=== PATIENT | male | born 1935 | race Caucasian/White ===

== ENCOUNTER 2017-05-11 07:15 | Outpatient (CLI) | payer MEDICARE, OTHER ==
[2017-05-11 15:01] LABS: ALBUMIN/GLOBULIN RATIO 1.5 (1.0-2.2); BILIRUBIN,TOTAL 0.8 mg/dL (0.2-1.0); BUN - BLOOD UREA NITROGEN 26 mg/dL (6-20); CALCIUM 8.8 mg/dL (8.5-10.3); CARBON DIOXIDE - CO2 26 mmol/L (21-32); CHLORIDE 106 mmol/L (101-111); CHOL/HDL RATIO 2.6 (<5.0); CHOLESTEROL 126 mg/dL; CREATININE 1.8 mg/dL (0.6-1.2); GFR - MDRD 37 (>89); GLUCOSE 81 mg/dL (70-100); HDL CHOLESTEROL 49 mg/dL; LDL/HDL RATIO 1.4 (<3.6); POTASSIUM 5.1 mmol/L (3.5-5.0); SODIUM 137 mmol/L (135-145); TOTAL PROTEIN 6.4 g/dL (6.7-8.2); TRIGLYCERIDES 43 mg/dL; VLDL CHOLESTEROL 9 mg/dL
== END 2017-05-11 07:16 | disposition home or self-care (01) ==
LOC: LAB.WCP 07:15
PROVIDERS: ATTEND Family Medicine
DX: I42.9 Cardiomyopathy, unspecified (principal); I25.10 Atherosclerotic heart disease of native coronary artery without angina pectoris; I48.92 Unspecified atrial flutter; R94.6 Abnormal results of thyroid function studies
CPT/HCPCS: 36415; 80053; 80061; 84439; 84443

== ENCOUNTER 2018-08-01 07:42 | Outpatient (CLI) | payer MEDICARE, OTHER ==
[2018-08-01 19:50] LABS: BASOPHILS # (AUTO) 0.1 10^3/uL (0.0-0.1); BASOPHILS % (AUTO) 0.8 %; EOSINOPHILS # (AUTO) 0.3 10^3/uL (0.0-0.7); EOSINOPHILS % (AUTO) 3.4 %; HGB - HEMOGLOBIN 13.8 g/dL (14.0-18.0); LYMPHOCYTES # (AUTO) 1.9 10^3/uL (1.5-3.5); LYMPHOCYTES % (AUTO) 26.3 %; MEAN CORPUSCULAR HEMOGLOBIN 30.9 pg (27.0-31.0); MEAN CORPUSCULAR HGB CONC 32.8 g/dL (32.0-36.0); MEAN CORPUSCULAR VOLUME 94.2 fL (80.0-94.0); MEAN PLATELET VOLUME 8.3 fL (7.4-11.4); MONOCYTES # (AUTO) 0.7 10^3/uL (0.0-1.0); MONOCYTES % (AUTO) 9.7 %; NEUTROPHILS # (AUTO) 4.4 10^3/uL (1.5-6.6); NEUTROPHILS % (AUTO) 59.8 %; PLT - PLATELET COUNT 202 10^3/uL (130-450); RED BLOOD COUNT 4.46 10^6/uL (4.70-6.10); RED CELL DISTRIBUTION WIDTH 14.8 % (12.0-15.0); WHITE BLOOD COUNT 7.4 x10^3/uL (4.8-10.8)
[2018-08-01 20:14] LABS: THYROID STIMULATING HORMONE 4.04 uIU/mL (0.34-5.60)
[2018-08-01 20:18] LABS: FREE T4 (FREE THYROXINE) 0.97 ng/dL (0.58-1.64)
[2018-08-01 20:20] LABS: ALBUMIN 3.8 g/dL (3.2-5.5); ALBUMIN/GLOBULIN RATIO 1.2 (1.0-2.2); ALKALINE PHOSPHATASE 60 IU/L (42-121); ALT ALANINE AMINOTRANSFERASE 19 IU/L (10-60); AST ASPARTATE AMINOTRANSFERASE 22 IU/L (10-42); BILIRUBIN,TOTAL 1.3 mg/dL (0.2-1.0); BUN - BLOOD UREA NITROGEN 34 mg/dL (6-20); CARBON DIOXIDE - CO2 24 mmol/L (21-32); CHLORIDE 107 mmol/L (101-111); CHOL/HDL RATIO 2.6 (<5.0); CHOLESTEROL 129 mg/dL; CREATININE 1.4 mg/dL (0.6-1.2); GFR - MDRD 49 (>89); GLUCOSE 87 mg/dL (70-100); HDL CHOLESTEROL 49 mg/dL; LDL CHOLESTEROL,CALCULATED 71 mg/dL; LDL/HDL RATIO 1.4 (<3.6); SODIUM 138 mmol/L (135-145); TOTAL PROTEIN 6.9 g/dL (6.7-8.2); VLDL CHOLESTEROL 9 mg/dL
== END 2018-08-01 07:43 | disposition home or self-care (01) ==
LOC: LAB.WCP 07:42
PROVIDERS: ATTEND Family Medicine
DX: I42.9 Cardiomyopathy, unspecified (principal); I25.10 Atherosclerotic heart disease of native coronary artery without angina pectoris; R94.6 Abnormal results of thyroid function studies; I48.92 Unspecified atrial flutter
CPT/HCPCS: 36415; 80053; 80061; 83721; 84439; 84443; 85025

== ENCOUNTER 2018-08-05 07:55 | Outpatient (CLI) | payer MEDICARE, OTHER | END 2018-08-05 07:56 | disposition home or self-care (01) | LOC: DI 07:55 | PROVIDERS: ATTEND Family Medicine | DX: I42.9 Cardiomyopathy, unspecified (principal); I48.92 Unspecified atrial flutter; I34.0 Nonrheumatic mitral (valve) insufficiency; J98.4 Other disorders of lung | CPT/HCPCS: 93306; 94010; 94729 ==

== ENCOUNTER 2018-08-13 17:24 | Emergency (ER) | payer MEDICARE, OTHER ==
[2018-08-13] MEDS ORDERED: METOPROLOL 5 MG/5 ML VIAL IVP STA ×2 (18:03→19:18)
--- NOTE | 2018-08-13 18:04 | ED Physician Documentation ---
History of Present Illness - Stated complaint Stated Complaint: IRREGULAR HR - Chief complaint Chief Complaint: Cardiac - History obtained from History obtained from: Patient, Family - History of Present Illness Timing: Today Pain level max: 0 Pain level now: 0 Improved by: nothing Worsened by: nothing - Additonal information Additional information: Patient is an 82-year-old male with a history of atrial fibrillation who presents to the emergency department with rapid heartbeat today. No chest pain. No shortness of breath. States that last time he was cardioverted. Review of Systems Ten Systems: 10 systems reviewed and negative Constitutional: denies: Fever, Chills Respiratory: denies: Cough GI: denies: Abdominal Pain, Vomiting, Diarrhea Skin: denies: Rash Musculoskeletal: denies: Neck pain, Back pain PD PAST MEDICAL HISTORY - Past Medical History Past Medical History: Yes Cardiovascular: Congestive heart failure, Hypertension, Atrial flutter, Atrial fibrillation Respiratory: Other Endocrine/Autoimmune: None GI: None : Incontinence, Nocturia HEENT: Chronic vision loss Psych: None Musculoskeletal: None Derm: None - Past Surgical History Past Surgical History: Yes Cardiovascular: CABG, Coronary stent HEENT: Cataracts - Present Medications Home Medications: Ambulatory Orders Medication Instructions Recorded Confirmed Aspirin 81 mg PO DAILY 08/09/13 07/23/16 Nitroglycerin 0.4 mg SL Q5M PRN 01/05/16 07/23/16 Amiodarone [Pacerone] 200 mg DAILY 07/23/16 07/23/16 Atorvastatin [Lipitor] 40 mg DAILY 07/23/16 07/23/16 Lisinopril 5 mg DAILY 07/23/16 07/23/16 Spironolactone 25 mg DAILY 07/23/16 07/23/16 Warfarin [Coumadin] 2.5 mg PO 1400 07/23/16 07/23/16 - Allergies Allergies/Adverse Reactions: Allergies Allergy/AdvReac Type Severity Reaction Status Date / Time carvedilol AdvReac Unknown Verified 07/23/16 15:03 - Social History Does the pt smoke?: No Smoking Status: Never smoker Does the pt drink ETOH?: Yes Does the pt have substance abuse?: No - Immunizations Immunizations are current?: Yes PD ED PE NORMAL - Vitals Vital signs reviewed: Yes - General General: Alert and oriented X 3, No acute distress - HEENT HEENT: Moist mucous membranes, Pharynx benign - Neck Neck: Supple, no meningeal sign - Cardiac Cardiac: Strong equal pulses, Other (irregular) - Respiratory Respiratory: No respiratory distress, Clear bilaterally - Abdomen Abdomen: Soft, Non tender, Non distended - Derm Derm: Warm and dry - Extremities Extremities: No edema - Neuro Neuro: Alert and oriented X 3 - Psych Psych: Normal mood, Normal affect Results - Vitals Vitals: Vital Signs - 24 hr 08/13/18 08/13/18 08/13/18 17:29 19:22 19:31 Temperature 36.2 C L Heart Rate 136 H 125 H 120 H Respiratory 18 18 16 Rate Blood Pressure 134/90 H 118/95 H 125/86 H O2 Saturation 98 98 97 08/13/18 08/13/18 08/13/18 19:36 19:41 19:51 Temperature Heart Rate 120 H 119 H 88 Respiratory 17 20 18 Rate Blood Pressure 120/85 H 118/94 H 114/82 H O2 Saturation 99 97 99 08/13/18 08/13/18 08/13/18 20:00 20:12 20:20 Temperature Heart Rate 107 H 56 L 56 L Respiratory 17 18 18 Rate Blood Pressure 127/72 109/69 O2 Saturation 98 98 08/13/18 20:37 Temperature Heart Rate 55 L Respiratory 16 Rate Blood Pressure 107/69 O2 Saturation 96 Oxygen O2 Source Room air - EKG (time done) 2011 Rate: Rate (enter#) (54) Rhythm: NSR [place]: Normal Intervals: Normal [place] QRS: Normal Ischemia: Normal ST segments Other comments: Other comments (PAC) 1732 Rate: Rate (enter#) (133) Rhythm: Atrial fibrillation [place]: Normal QRS: Normal Ischemia: Other (rate related) - Labs Labs: Laboratory Tests 08/13/18 08/13/18 08/13/18 17:42 17:42 17:42 WBC 6.9 RBC 4.51 L Hgb 14.0 Hct 41.6 L MCV 92.4 MCH 31.0 MCHC 33.6 RDW 14.7 Plt Count 172 MPV 8.3 Neut # (Auto) 4.4 Lymph # (Auto) 1.4 L [place] # (Auto) 0.8 Eos # (Auto) 0.2 Baso # (Auto) 0.0 Absolute Nucleated RBC 0.00 Nucleated RBC % 0.0 PT 29.7 H INR 2.7 H Sodium 136 Potassium 4.0 Chloride 108 Carbon Dioxide 22 Anion Gap 6.0 BUN 34 H Creatinine 1.3 H Estimated GFR (MDRD) 53 L Glucose 127 H Calcium 8.4 L Phosphorus 2.5 Magnesium 2.3 Total Bilirubin 0.6 AST 24 ALT 22 Alkaline Phosphatase 74 Total Protein 6.7 Albumin 3.8 Globulin 2.9 Albumin/Globulin Ratio 1.3 Lipase 53 H Procedures - Cardioversion 1 Time of attempt: 20:00 Indication: Tachyarrhythmia Risks, benefits, alternatives explained to: Pt Prep: IV, O2, desk monitor, Pulse ox (EtCO2) Meds: Fentanyl, Propofol CS via: Pads, Anterolateral Sync: 150j, 200j, 360j Post cardioversion rhythm: NSR Complications: Other (none) Performed by: ED MD MEDICAL DECISION MAKING - ED course Complexity details: reviewed results, re-evaluated patient, considered differential, d/w patient ED course: 82-year-old male with a history of atrial fibrillation presents with atrial fibrillation with rapid ventricular response. He is maintained on amiodarone, no change with metoprolol. He is therapeutic and his INR, therefore he elected to be cardioverted. He was converted successfully to normal sinus rhythm and is now asymptomatic. I will have him follow-up with his doctor for further care. Patient counseled regarding signs and symptoms for which I believe and urgent re-evaluation would be necessary. Patient with good understanding of and agreement to plan and is comfortable going home at this time This document was made in part using voice recognition software. While efforts are made to proofread this document, sound alike and grammatical errors may occur. Departure - Departure Disposition: 01 Home, Self Care Clinical Impression: Atrial fibrillation Qualifiers: Atrial fibrillation type: paroxysmal Qualified Code(s): I48.0 - Paroxysmal atrial fibrillation Condition: Good Instructions: ED Afib Follow-Up: Tirso Mariano MD [Primary Care Provider] - Within 1 week Comments: Return if you worsen. You were cardioverted tonight. Discharge Date/Time: 08/13/18 20:43
[2018-08-13 18:19] LABS: BASOPHILS % (AUTO) 0.6 %; EOSINOPHILS # (AUTO) 0.2 10^3/uL (0.0-0.7); EOSINOPHILS % (AUTO) 3.6 %; LYMPHOCYTES # (AUTO) 1.4 10^3/uL (1.5-3.5); LYMPHOCYTES % (AUTO) 20.7 %; MEAN CORPUSCULAR HGB CONC 33.6 g/dL (32.0-36.0); MEAN CORPUSCULAR VOLUME 92.4 fL (80.0-94.0); MEAN PLATELET VOLUME 8.3 fL (7.4-11.4); MONOCYTES # (AUTO) 0.8 10^3/uL (0.0-1.0); MONOCYTES % (AUTO) 11.2 %; NEUTROPHILS # (AUTO) 4.4 10^3/uL (1.5-6.6); NEUTROPHILS % (AUTO) 63.9 %; PLT - PLATELET COUNT 172 10^3/uL (130-450); RED BLOOD COUNT 4.51 10^6/uL (4.70-6.10); RED CELL DISTRIBUTION WIDTH 14.7 % (12.0-15.0); WHITE BLOOD COUNT 6.9 x10^3/uL (4.8-10.8)
[2018-08-13 18:25] LABS: ALBUMIN 3.8 g/dL (3.2-5.5); ALBUMIN/GLOBULIN RATIO 1.3 (1.0-2.2); BILIRUBIN,TOTAL 0.6 mg/dL (0.2-1.0); CALCIUM 8.4 mg/dL (8.5-10.3); CREATININE 1.3 mg/dL (0.6-1.2); MAGNESIUM 2.3 mg/dL (1.7-2.8); PHOSPHORUS 2.5 mg/dL (2.5-4.6); TOTAL PROTEIN 6.7 g/dL (6.7-8.2)
[2018-08-13 18:32] LABS: INR 2.7 (0.8-1.2); PT - PROTHROMBIN TIME 29.7 secs (9.9-12.6)
[2018-08-13] MEDS ORDERED: METOPROLOL 5 MG/5 ML VIAL IVP ONE (19:27)
[2018-08-13] MEDS ORDERED: PROPOFOL 200 MG/20 ML VIAL IVP STA (19:47)
[2018-08-13] MEDS ORDERED: fentaNYL 100 MCG/2 ML VIAL IVP STA (19:47)
[2018-08-13 20:43] VITALS: BP 107/69
== END 2018-08-13 20:43 | disposition home or self-care (01) ==
LOC: ED 17:24
DX: I48.0 Paroxysmal atrial fibrillation (principal); I11.0 Hypertensive heart disease with heart failure; I50.9 Heart failure, unspecified; Z79.01 Long term (current) use of anticoagulants; Z95.1 Presence of aortocoronary bypass graft; Z95.5 Presence of coronary angioplasty implant and graft
CPT/HCPCS: 36415; 80053; 83690; 83735; 84100; 85025; 85610; 92960; 93005; 94770; 96374; 99284

== ENCOUNTER 2018-10-12 13:12 | Emergency (ER) | payer MEDICARE, OTHER ==
[2018-10-12 13:35] LABS: BASOPHILS # (AUTO) 0.1 10^3/uL (0.0-0.1); BASOPHILS % (AUTO) 0.9 %; EOSINOPHILS # (AUTO) 0.2 10^3/uL (0.0-0.7); EOSINOPHILS % (AUTO) 3.4 %; HGB - HEMOGLOBIN 13.9 g/dL (14.0-18.0); LYMPHOCYTES # (AUTO) 1.4 10^3/uL (1.5-3.5); LYMPHOCYTES % (AUTO) 20.9 %; MEAN CORPUSCULAR HEMOGLOBIN 30.3 pg (27.0-31.0); MEAN CORPUSCULAR HGB CONC 33.2 g/dL (32.0-36.0); MEAN CORPUSCULAR VOLUME 91.4 fL (80.0-94.0); MEAN PLATELET VOLUME 7.8 fL (7.4-11.4); MONOCYTES # (AUTO) 0.8 10^3/uL (0.0-1.0); MONOCYTES % (AUTO) 11.6 %; NEUTROPHILS # (AUTO) 4.2 10^3/uL (1.5-6.6); NEUTROPHILS % (AUTO) 63.2 %; PLT - PLATELET COUNT 192 10^3/uL (130-450); RED BLOOD COUNT 4.58 10^6/uL (4.70-6.10); RED CELL DISTRIBUTION WIDTH 14.9 % (12.0-15.0); WHITE BLOOD COUNT 6.6 x10^3/uL (4.8-10.8)
[2018-10-12 13:43] LABS: ALBUMIN 3.7 g/dL (3.2-5.5); BILIRUBIN,TOTAL 0.8 mg/dL (0.2-1.0); CREATININE 1.5 mg/dL (0.6-1.2); TOTAL PROTEIN 7.3 g/dL (6.7-8.2)
[2018-10-12] MEDS ORDERED: PROPOFOL 200 MG/20 ML VIAL IVP STA (13:43)
[2018-10-12 14:03] LABS: INR 2.8 (0.8-1.2); PT - PROTHROMBIN TIME 30.5 secs (9.9-12.6)
--- NOTE | 2018-10-12 14:08 | ED Physician Documentation ---
History of Present Illness - Stated complaint Stated Complaint: RAPID HR - Chief complaint Chief Complaint: Cardiac - History obtained from History obtained from: Patient - History of Present Illness Timing: Today Pain level max: 0 Pain level now: 0 - Additonal information Additional information: 83-year-old male with a history of paroxysmal atrial fibrillation. States that he took his pulse today and it was in the 130s-150s. Has had to be cardioverted in the past. Is maintained on warfarin. No chest pain. No shortness of breath. Currently feeling better when he is sitting down. Nothing makes it worse Review of Systems Constitutional: denies: Fever, Chills Nose: denies: Rhinorrhea / runny nose, Congestion Throat: denies: Sore throat Cardiac: denies: Chest pain / pressure Respiratory: denies: Cough GI: denies: Nausea, Vomiting, Diarrhea Skin: denies: Rash Musculoskeletal: denies: Neck pain, Back pain Neurologic: denies: Headache PD PAST MEDICAL HISTORY - Past Medical History Past Medical History: Yes Cardiovascular: Congestive heart failure, Hypertension, Atrial flutter, Atrial fibrillation Respiratory: Other Endocrine/Autoimmune: None GI: None : Incontinence, Nocturia HEENT: Chronic vision loss Psych: None Musculoskeletal: None Derm: None Other Past Medical History: Cardiac Cardioversion - Past Surgical History Past Surgical History: Yes Cardiovascular: CABG, Coronary stent HEENT: Cataracts - Present Medications Home Medications: Ambulatory Orders Medication Instructions Recorded Confirmed Aspirin 81 mg PO DAILY 08/09/13 10/12/18 Nitroglycerin 0.4 mg SL Q5M PRN 01/05/16 10/12/18 Amiodarone [Pacerone] 200 mg DAILY 07/23/16 10/12/18 Atorvastatin [Lipitor] 40 mg DAILY 07/23/16 10/12/18 Lisinopril 5 mg DAILY 07/23/16 10/12/18 Spironolactone 25 mg DAILY 07/23/16 10/12/18 Warfarin [Coumadin] 2.5 mg PO 1400 07/23/16 10/12/18 - Allergies Allergies/Adverse Reactions: Allergies Allergy/AdvReac Type Severity Reaction Status Date / Time carvedilol AdvReac Unknown Verified 10/12/18 13:21 - Social History Does the pt smoke?: No Smoking Status: Never smoker Does the pt drink ETOH?: Yes Does the pt have substance abuse?: No - Immunizations Immunizations are current?: Yes - POLST Patient has POLST: No PD ED PE NORMAL - Vitals Vital signs reviewed: Yes - General General: Alert and oriented X 3, No acute distress - HEENT HEENT: Moist mucous membranes - Neck Neck: Supple, no meningeal sign - Cardiac Cardiac: Other (Tachycardic, irregular) - Respiratory Respiratory: No respiratory distress, Clear bilaterally - Abdomen Abdomen: Soft, Non tender, Non distended - Back Back: No spinal TTP - Derm Derm: Warm and dry - Extremities Extremities: No edema, No calf tenderness / cord - Neuro Neuro: Alert and oriented X 3 Results - Vitals Vitals: Vital Signs - 24 hr 10/12/18 10/12/18 10/12/18 13:19 13:34 14:14 Temperature 36.4 C L Heart Rate 103 H 104 H 69 Respiratory 20 19 19 Rate Blood Pressure 132/110 H 115/84 H 120/73 O2 Saturation 97 97 99 Oxygen O2 Source Room air - EKG (time done) 1230 Rate: Rate (enter#) (105) Rhythm: Sinus tachycardia [place]: Normal Intervals: Normal [place] QRS: Normal Ischemia: Normal ST segments 1401 Rate: Rate (enter#) (61) Rhythm: NSR, Other (PAC) [place]: Normal Intervals: Normal [place] QRS: Normal Ischemia: Normal ST segments - Labs Labs: Laboratory Tests 10/12/18 10/12/18 10/12/18 13:24 13:24 13:24 WBC 6.6 RBC 4.58 L Hgb 13.9 L Hct 41.9 L MCV 91.4 MCH 30.3 MCHC 33.2 RDW 14.9 Plt Count 192 MPV 7.8 Neut # (Auto) 4.2 Lymph # (Auto) 1.4 L [place] # (Auto) 0.8 Eos # (Auto) 0.2 Baso # (Auto) 0.1 Absolute Nucleated RBC 0.00 Nucleated RBC % 0.0 PT INR Sodium 138 Potassium 4.3 Chloride 107 Carbon Dioxide 24 Anion Gap 7.0 BUN 24 H Creatinine 1.5 H Estimated GFR (MDRD) 45 L Glucose 113 H Calcium 9.0 Total Bilirubin 0.8 AST 23 ALT 19 Alkaline Phosphatase 79 Troponin I < 0.04 Total Protein 7.3 Albumin 3.7 Globulin 3.6 Albumin/Globulin Ratio 1.0 Lipase 45 01/05/19 13:43 WBC RBC Hgb Hct MCV MCH MCHC RDW Plt Count MPV Neut # (Auto) Lymph # (Auto) [place] # (Auto) Eos # (Auto) Baso # (Auto) Absolute Nucleated RBC Nucleated RBC % PT 30.5 H INR 2.8 H Sodium Potassium Chloride Carbon Dioxide Anion Gap BUN Creatinine Estimated GFR (MDRD) Glucose Calcium Total Bilirubin AST ALT Alkaline Phosphatase Troponin I Total Protein Albumin Globulin Albumin/Globulin Ratio Lipase PD MEDICAL DECISION MAKING - ED course Complexity details: reviewed results, re-evaluated patient, considered differential, d/w patient, d/w family ED course: 83-year-old male presents to the emergency department with intermittent atrial fibrillation with rapid ventricular response. Initial EKG appeared to be sinus tachycardia, but on the monitor he was clearly going in and out of atrial f ibrillation. He elected to be cardioverted. While we were getting things ready for the cardioversion, he converted to normal sinus rhythm and stayed there. Became asymptomatic. Therefore the cardioversion was not performed. No sedation given. We will have him follow-up with his doctor for further care. Patient counseled regarding signs and symptoms for which I believe and urgent re-evaluation would be necessary. Patient with good understanding of and agreement to plan and is comfortable going home at this time This document was made in part using voice recognition software. While efforts are made to proofread this document, sound alike and grammatical errors may occur. Departure - Departure Disposition: 01 Home, Self Care Clinical Impression: Paroxysmal atrial fibrillation with RVR Condition: Good Instructions: ED Afib Follow-Up: Tirso Mariano MD [Primary Care Provider] - As Needed Comments: You have converted back to sinus rhythm on your own today. Return if you worsen. Discharge Date/Time: 10/12/18 14:22
[2018-10-12 14:14] VITALS: BP 120/73
== END 2018-10-12 14:22 | disposition home or self-care (01) ==
LOC: ED 13:12
DX: I48.0 Paroxysmal atrial fibrillation (principal); R00.0 Tachycardia, unspecified; I11.0 Hypertensive heart disease with heart failure; I50.9 Heart failure, unspecified; Z95.1 Presence of aortocoronary bypass graft; Z95.5 Presence of coronary angioplasty implant and graft; Z79.01 Long term (current) use of anticoagulants; Z79.82 Long term (current) use of aspirin
CPT/HCPCS: 36415; 80053; 83690; 84484; 85025; 85610; 93005; 99283; 99284

== ENCOUNTER 2018-12-30 08:00 | Outpatient (CLI) | payer MEDICARE, OTHER | END 2018-12-30 23:59 | disposition home or self-care (01) | LOC: LAB.WCP 08:00 | PROVIDERS: ATTEND Physician Assistant Medical | DX: I48.92 Unspecified atrial flutter (principal); Z79.01 Long term (current) use of anticoagulants ==

== ENCOUNTER 2019-01-06 08:00 | Outpatient (CLI) | payer MEDICARE, OTHER | END 2019-01-06 23:59 | disposition home or self-care (01) | LOC: LAB.WCP 08:00 | PROVIDERS: ATTEND Family Medicine | DX: I48.0 Paroxysmal atrial fibrillation (principal); Z79.01 Long term (current) use of anticoagulants | CPT/HCPCS: 81025 ==

== ENCOUNTER 2019-01-13 08:00 | Outpatient (CLI) | payer MEDICARE, OTHER | END 2019-01-13 23:59 | disposition home or self-care (01) | LOC: LAB.WCP 08:00 | PROVIDERS: ATTEND Family Medicine | DX: I48.0 Paroxysmal atrial fibrillation (principal); Z79.01 Long term (current) use of anticoagulants ==

== ENCOUNTER 2019-02-10 08:00 | Outpatient (CLI) | payer MEDICARE, OTHER | END 2019-02-10 08:01 | disposition home or self-care (01) | LOC: LAB.WCP 08:00 | PROVIDERS: ATTEND Family Medicine | DX: I48.92 Unspecified atrial flutter (principal); Z79.01 Long term (current) use of anticoagulants ==

== ENCOUNTER 2019-02-11 07:40 | Outpatient (CLI) | payer MEDICARE, OTHER ==
[2019-02-11 12:32] LABS: BASOPHILS % (AUTO) 0.7 %; EOSINOPHILS # (AUTO) 0.2 10^3/uL (0.0-0.7); HGB - HEMOGLOBIN 12.5 g/dL (14.0-18.0); LYMPHOCYTES # (AUTO) 1.6 10^3/uL (1.5-3.5); LYMPHOCYTES % (AUTO) 27.4 %; MEAN CORPUSCULAR HEMOGLOBIN 29.3 pg (27.0-31.0); MEAN CORPUSCULAR HGB CONC 32.3 g/dL (32.0-36.0); MEAN CORPUSCULAR VOLUME 90.6 fL (80.0-94.0); MEAN PLATELET VOLUME 8.5 fL (7.4-11.4); MONOCYTES # (AUTO) 0.7 10^3/uL (0.0-1.0); MONOCYTES % (AUTO) 11.4 %; NEUTROPHILS # (AUTO) 3.4 10^3/uL (1.5-6.6); NEUTROPHILS % (AUTO) 57.5 %; PLT - PLATELET COUNT 190 10^3/uL (130-450); RED BLOOD COUNT 4.27 10^6/uL (4.70-6.10); RED CELL DISTRIBUTION WIDTH 15.4 % (12.0-15.0); WHITE BLOOD COUNT 5.9 x10^3/uL (4.8-10.8)
[2019-02-11 13:19] LABS: ALBUMIN 3.4 g/dL (3.2-5.5); ALBUMIN/GLOBULIN RATIO 1.2 (1.0-2.2); ALKALINE PHOSPHATASE 65 IU/L (42-121); ALT ALANINE AMINOTRANSFERASE 20 IU/L (10-60); AST ASPARTATE AMINOTRANSFERASE 22 IU/L (10-42); BILIRUBIN,TOTAL 0.7 mg/dL (0.2-1.0); BUN - BLOOD UREA NITROGEN 35 mg/dL (6-20); CALCIUM 8.4 mg/dL (8.5-10.3); CARBON DIOXIDE - CO2 23 mmol/L (21-32); CHLORIDE 107 mmol/L (101-111); CHOL/HDL RATIO 2.6 (<5.0); CHOLESTEROL 98 mg/dL; CREATININE 1.8 mg/dL (0.6-1.2); GFR - MDRD 36 (>89); GLUCOSE 97 mg/dL (70-100); HDL CHOLESTEROL 37 mg/dL; LDL CHOLESTEROL,CALCULATED 53 mg/dL; LDL/HDL RATIO 1.4 (<3.6); SODIUM 138 mmol/L (135-145); TOTAL PROTEIN 6.3 g/dL (6.7-8.2); VLDL CHOLESTEROL 8 mg/dL
[2019-02-11 14:46] LABS: FREE T4 (FREE THYROXINE) 1.73 ng/dL (0.58-1.64)
== END 2019-02-11 07:41 | disposition home or self-care (01) ==
LOC: LAB.WCP 07:40
PROVIDERS: ATTEND Family Medicine
DX: I25.10 Atherosclerotic heart disease of native coronary artery without angina pectoris (principal); E03.9 Hypothyroidism, unspecified; Z95.1 Presence of aortocoronary bypass graft; I42.9 Cardiomyopathy, unspecified
CPT/HCPCS: 36415; 80053; 80061; 83721; 84439; 84443; 85025

== ENCOUNTER 2019-02-17 08:00 | Outpatient (CLI) | payer MEDICARE, OTHER | END 2019-02-17 23:59 | disposition home or self-care (01) | LOC: LAB.WCP 08:00 | PROVIDERS: ATTEND Family Medicine | DX: I48.0 Paroxysmal atrial fibrillation (principal); Z79.01 Long term (current) use of anticoagulants ==

== ENCOUNTER 2019-03-05 08:00 | Outpatient (CLI) | payer MEDICARE, OTHER | END 2019-03-05 08:01 | disposition home or self-care (01) | LOC: LAB.WCP 08:00 | PROVIDERS: ATTEND Family Medicine | DX: I48.0 Paroxysmal atrial fibrillation (principal); Z79.01 Long term (current) use of anticoagulants ==

== ENCOUNTER 2019-03-18 08:00 | Outpatient (CLI) | payer MEDICARE, OTHER | END 2019-03-18 08:01 | disposition home or self-care (01) | LOC: LAB.WCP 08:00 | PROVIDERS: ATTEND Family Medicine | DX: I48.0 Paroxysmal atrial fibrillation (principal); Z79.01 Long term (current) use of anticoagulants ==

== ENCOUNTER 2019-03-20 07:30 | Outpatient (CLI) | payer MEDICARE, OTHER ==
[2019-03-20 14:20] LABS: CALCIUM 8.7 mg/dL (8.5-10.3); CREATININE 2.3 mg/dL (0.6-1.2)
[2019-03-20 14:35] LABS: THYROID STIMULATING HORMONE 0.11 uIU/mL (0.34-5.60)
[2019-03-20 14:37] LABS: FREE T4 (FREE THYROXINE) 1.43 ng/dL (0.58-1.64)
== END 2019-03-20 07:31 | disposition home or self-care (01) ==
LOC: LAB.WCP 07:30
PROVIDERS: ATTEND Family Medicine
DX: N18.3 Chronic kidney disease, stage 3 (moderate) (principal); E03.9 Hypothyroidism, unspecified; I48.0 Paroxysmal atrial fibrillation
CPT/HCPCS: 36415; 80048; 84439; 84443

== ENCOUNTER 2019-03-25 07:41 | Outpatient (CLI) | payer MEDICARE, OTHER ==
[2019-03-25 12:38] LABS: CALCIUM 8.7 mg/dL (8.5-10.3); CREATININE 1.9 mg/dL (0.6-1.2)
== END 2019-03-25 07:42 | disposition home or self-care (01) ==
LOC: LAB.WCP 07:41
PROVIDERS: ATTEND Family Medicine
DX: N18.3 Chronic kidney disease, stage 3 (moderate) (principal)
CPT/HCPCS: 36415; 80048

== ENCOUNTER 2019-07-17 09:19 | Emergency (ER) | payer MEDICARE, OTHER ==
[2019-07-17 09:37] VITALS: BP 133/76
--- NOTE | 2019-07-17 09:44 | ED Physician Documentation ---
PD HPI URI - Stated complaint Stated Complaint: CONGESTION/COUGH - Chief complaint Chief Complaint: Resp - History obtained from History obtained from: Patient - History of Present Illness Timing - onset: How many days ago (He has had some general cough particularly at night for the last month or 2 that has been increasing. However it is been more significant the last 3 to 5 days. He has been unable to sleep the last 2 nights because of cough particular with laying down. He feels better with sitting up. He has had a little bit of clear phlegm to it but no purulence. He denies any fever chills or head cold symptoms.) Timing duration: Weeks (has had cough for weeks to couple months, persistent. But worse the past week or two, and even more for several days.) Timing details: Gradual onset, Still present Associated symptoms: Dry cough, Dyspnea. No: Fever, Nasal congestion, Sore throat, Hemoptysis, Chest pain Contributing factors: No: Sick contact, COPD / asthma Similar symptoms before: Has not had sx before Recently seen: Clinic (seen by [facility] week ago and ordered to have CXR and PFTs for the cough.) Review of Systems Constitutional: denies: Fever, Chills, Myalgias Nose: denies: Rhinorrhea / runny nose, Congestion Throat: denies: Sore throat Cardiac: denies: Chest pain / pressure, Palpitations Respiratory: reports: Dyspnea, Cough. denies: Hemoptysis, Wheezing GI: denies: Vomiting, Diarrhea Skin: denies: Rash, Lesions PD PAST MEDICAL HISTORY - Past Medical History Cardiovascular: Congestive heart failure, Hypertension, Atrial flutter, Atrial fibrillation Respiratory: Other Endocrine/Autoimmune: None GI: None : Incontinence, Nocturia HEENT: Chronic vision loss Psych: None Musculoskeletal: None Derm: None - Past Surgical History Past Surgical History: Yes Cardiovascular: CABG, Coronary stent HEENT: Cataracts - Present Medications Home Medications: Ambulatory Orders Medication Instructions Recorded Confirmed Aspirin 81 mg PO DAILY 08/09/13 10/12/18 Nitroglycerin 0.4 mg SL Q5M PRN 01/05/16 10/12/18 Amiodarone [Pacerone] 200 mg DAILY 07/23/16 10/12/18 Atorvastatin [Lipitor] 40 mg DAILY 07/23/16 10/12/18 Lisinopril 5 mg DAILY 07/23/16 10/12/18 Spironolactone 25 mg DAILY 07/23/16 10/12/18 Warfarin [Coumadin] 2.5 mg PO 1400 07/23/16 10/12/18 Benzonatate [Tessalon Perle] 100 mg PO TID PRN #25 capsule 07/17/19 dexAMETHasone [Decadron] 4 mg PO DAILY #7 tablet 07/17/19 - Allergies Allergies/Adverse Reactions: Allergies Allergy/AdvReac Type Severity Reaction Status Date / Time carvedilol AdvReac Unknown Verified 10/12/18 13:21 - Social History Does the pt smoke?: No Smoking Status: Never smoker Does the pt drink ETOH?: Yes Does the pt have substance abuse?: No - Immunizations Immunizations are current?: Yes - POLST Patient has POLST: No PD ED PE NORMAL - Vitals Vital signs reviewed: Yes - General General: Alert and oriented X 3, No acute distress, Well developed/nourished - HEENT HEENT: No: Pharynx benign (no redness nor exudate. Has uvular edema. No edema of pallate. ) - Neck Neck: Supple, no meningeal sign, No adenopathy - Cardiac Cardiac: No murmur. No: RRR (irregular but normal rate) - Respiratory Respiratory: No respiratory distress, Clear bilaterally - Abdomen Abdomen: Soft, Non tender - Derm Derm: Normal color, Warm and dry - Extremities Extremities: No edema, No calf tenderness / cord - Neuro Neuro: Alert and oriented X 3, No motor deficit, Normal speech Results - Vitals Vitals: Vital Signs - 24 hr 07/17/19 09:35 Temperature 36.8 C Heart Rate 97 Respiratory 19 Rate Blood Pressure 133/76 H O2 Saturation 97 Oxygen O2 Source Room air - Rads (name of study) chest xray Radiology: Prelim report reviewed (normal study), See rad report PD MEDICAL DECISION MAKING - ED course Complexity details: considered differential (longer term cough and now worsening, with uvular edema now would be suggestive of JENELLE cause. 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 However you do not seem ill overall. There is a little swelling of the uvula and that combined with the persistence of the cough and now worsening would be more suggestive of it coming from the lisinopril. I would stop the lisinopril. It is a low dose and you may not necessarily need to have another blood pressure medicine in its place. See how your blood pressure does over the next week or 2. Decadron steroid daily for a week and Tessalon if needed for cough suppression. This should help the symptoms quite a bit along with being off of the medicine. The cough should improve well over the first few days, but will slowly decrease to be entirely away and may take a week or two. Recheck if worsening. I sent your prescriptions electronically to the [facility] Discharge Date/Time: 07/17/19 11:16
[2019-07-17] MEDS ORDERED: CHERRY SYRUP 10 ML UDC PO ONE (10:05)
[2019-07-17] MEDS ORDERED: BENZONATATE 100 MG CAPSULE PO STA (10:05)
[2019-07-17] MEDS ORDERED: DEXAMETHASONE 10 MG/ML VIAL PO STA (10:05)
--- NOTE | 2019-07-17 10:44 | XRAY Report ---
Reason: dyspnea/ cough Procedure Date: 07/17/2019 Accession Number: [id number] / [id number] Procedure: XR - Chest 2 View X-Ray CPT Code: 76886 FULL RESULT: EXAM: CHEST RADIOGRAPHY EXAM DATE: 07/17/2019 10:18 AM. CLINICAL HISTORY: Dyspnea/ cough. COMPARISON: CHEST 1 VIEW 01/04/2016 9:56 AM. TECHNIQUE: 2 views. FINDINGS: Lungs/Pleura: No focal opacities evident. No pleural effusion. No pneumothorax. Normal volumes. Mediastinum: Post sternotomy. Heart size normal. Ectatic aorta. Other: DJD spine. IMPRESSION: No active cardiopulmonary disease RADIA
== END 2019-07-17 11:16 | disposition home or self-care (01) ==
LOC: ED 09:19
DX: R05 Cough (principal); T46.4X5A Adverse effect of angiotensin-converting-enzyme inhibitors, initial encounter; R60.0 Localized edema; I11.0 Hypertensive heart disease with heart failure; I50.9 Heart failure, unspecified; I48.91 Unspecified atrial fibrillation; Z79.01 Long term (current) use of anticoagulants; Z79.82 Long term (current) use of aspirin
CPT/HCPCS: 71046; 99283; A9270

== ENCOUNTER 2019-08-29 12:43 | Outpatient (CLI) | payer MEDICARE, OTHER | END 2019-08-29 12:44 | disposition home or self-care (01) | LOC: RT 12:43 | PROVIDERS: ATTEND Internal Medicine Cardiovascular Disease | DX: J70.2 Acute drug-induced interstitial lung disorders (principal); I48.91 Unspecified atrial fibrillation; Z79.899 Other long term (current) drug therapy | CPT/HCPCS: 94010; 94727 ==

== ENCOUNTER 2019-10-14 07:56 | Outpatient (CLI) | payer MEDICARE, OTHER ==
--- NOTE | 2019-10-14 09:35 | XRAY Report ---
Reason: CHRONIC COUGH Procedure Date: 10/14/2019 Accession Number: [id number] / [id number] Procedure: WCP - Chest 2 View X-Ray CPT Code: 70287 Final Report FULL RESULT: EXAM: CHEST RADIOGRAPHY EXAM DATE: 10/14/2019 07:56 AM. CLINICAL HISTORY: CHRONIC COUGH. COMPARISON: CHEST 2 VIEW 07/17/2019 10:08 AM. TECHNIQUE: 2 views. FINDINGS: Lungs/Pleura: Hyperexpanded with flattened diaphragm typical for COPD. No localized infiltrate, consolidation, effusion, or pneumothorax. Mediastinum: Mild cardiomegaly, unchanged. Upper lobe vessels not distended. Other: Status post median sternotomy. IMPRESSION: Evidence of COPD. No acute disease. RADIA
== END 2019-10-14 23:59 | disposition home or self-care (01) ==
LOC: DI.WCP 07:56
PROVIDERS: ATTEND Family Medicine
DX: J44.9 Chronic obstructive pulmonary disease, unspecified (principal)
CPT/HCPCS: 71046

== ENCOUNTER 2020-09-27 08:00 | Outpatient (CLI) | payer MEDICARE, OTHER ==
[2020-09-27 12:02] LABS: BASOPHILS % (AUTO) 0.8 %; EOSINOPHILS # (AUTO) 0.2 10^3/uL (0.0-0.7); HGB - HEMOGLOBIN 13.5 g/dL (14.0-18.0); LYMPHOCYTES # (AUTO) 1.1 10^3/uL (1.5-3.5); LYMPHOCYTES % (AUTO) 21.5 %; MEAN CORPUSCULAR HEMOGLOBIN 30.7 pg (27.0-31.0); MEAN CORPUSCULAR HGB CONC 31.8 g/dL (32.0-36.0); MEAN CORPUSCULAR VOLUME 96.4 fL (80.0-94.0); MONOCYTES # (AUTO) 0.6 10^3/uL (0.0-1.0); MONOCYTES % (AUTO) 11.3 %; NEUTROPHILS # (AUTO) 3.1 10^3/uL (1.5-6.6); PLT - PLATELET COUNT 186 10^3/uL (130-450); WHITE BLOOD COUNT 4.9 x10^3/uL (4.8-10.8)
[2020-09-27 12:47] LABS: ALBUMIN 3.9 g/dL (3.2-5.5); ALBUMIN/GLOBULIN RATIO 1.4 (1.0-2.2); ALKALINE PHOSPHATASE 82 IU/L (42-121); ALT ALANINE AMINOTRANSFERASE 20 IU/L (10-60); AST ASPARTATE AMINOTRANSFERASE 24 IU/L (10-42); BUN - BLOOD UREA NITROGEN 27 mg/dL (6-20); CALCIUM 8.7 mg/dL (8.5-10.3); CARBON DIOXIDE - CO2 21 mmol/L (21-32); CHLORIDE 107 mmol/L (101-111); CHOL/HDL RATIO 2.3 (<5.0); CHOLESTEROL 112 mg/dL; CREATININE 1.4 mg/dL (0.6-1.2); GLUCOSE 94 mg/dL (70-100); HDL CHOLESTEROL 48 mg/dL; LDL CHOLESTEROL,CALCULATED 56 mg/dL; LDL/HDL RATIO 1.2 (<3.6); SODIUM 137 mmol/L (135-145); TOTAL PROTEIN 6.7 g/dL (6.7-8.2); VLDL CHOLESTEROL 8 mg/dL
[2020-09-27 12:50] LABS: THYROID STIMULATING HORMONE 23.57 uIU/mL (0.34-5.60)
[2020-09-27 12:52] LABS: FREE T4 (FREE THYROXINE) 0.51 ng/dL (0.58-1.64)
== END 2020-09-27 23:59 | disposition home or self-care (01) ==
LOC: LAB.WCP 08:00
PROVIDERS: ATTEND Internal Medicine
DX: I48.0 Paroxysmal atrial fibrillation (principal); I42.9 Cardiomyopathy, unspecified
CPT/HCPCS: 36415; 80053; 80061; 83721; 84439; 84443; 85025

== ENCOUNTER 2021-03-21 08:00 | Outpatient (CLI) | payer MEDICARE, OTHER ==
[2021-03-21 12:24] LABS: THYROID STIMULATING HORMONE 5.63 uIU/mL (0.34-5.60)
[2021-03-21 12:28] LABS: FREE T4 (FREE THYROXINE) 1.07 ng/dL (0.58-1.64)
== END 2021-03-21 23:59 | disposition home or self-care (01) ==
LOC: LAB.WCP 08:00
PROVIDERS: ATTEND Internal Medicine
DX: R94.6 Abnormal results of thyroid function studies (principal)
CPT/HCPCS: 36415; 84439; 84443

== ENCOUNTER 2021-06-05 10:00 | Emergency (ER) | payer MEDICARE, OTHER ==
--- NOTE | 2021-06-05 10:05 | ED Physician Documentation ---
PD HPI CHEST PAIN - Stated complaint Stated Complaint: CHEST PX - History obtained from History obtained from: Patient - History of Present Illness Timing - onset: How many weeks ago (2) Timing - onset during: Light activity, Other (deeper breathing). No: Rest Timing - duration: Weeks (2) Timing - details: Gradual onset Quality: Aching, Sharp Location: Substernal Radiation: No: Jaw, Neck Improved by: Rest Worsened by: Inspiration, Movement, Palpation (slightly). No: Exertion, Eating Associated symptoms: No: Shortness of air, Nausea, Vomiting, Feeling faint / dizzy, Palpitations Similar symptoms before: Has not had sx before Recently seen: Not recently seen Review of Systems Constitutional: denies: Fever, Chills Nose: denies: Rhinorrhea / runny nose, Congestion Throat: denies: Sore throat Cardiac: reports: Chest pain / pressure. denies: Palpitations, Pedal edema, Calf pain Respiratory: denies: Dyspnea, Cough, Wheezing GI: denies: Abdominal Pain, Nausea, Vomiting, Diarrhea : denies: Dysuria, Frequency Skin: denies: Rash, Abrasion (s), Laceration (s) Neurologic: denies: Focal weakness, Numbness, Near syncope PD PAST MEDICAL HISTORY - Past Medical History Cardiovascular: Congestive heart failure, Hypertension, Atrial flutter, Atrial fibrillation Respiratory: Other Endocrine/Autoimmune: None GI: None : Incontinence, Nocturia HEENT: Chronic vision loss Psych: None Musculoskeletal: None Derm: None - Past Surgical History Past Surgical History: Yes Cardiovascular: CABG, Coronary stent HEENT: Cataracts - Present Medications Home Medications: Ambulatory Orders Medication Instructions Recorded Confirmed Aspirin 81 mg PO DAILY 08/09/13 06/05/21 Nitroglycerin 0.4 mg SL Q5M PRN 01/05/16 06/05/21 Amiodarone [Pacerone] 100 mg DAILY 07/23/16 06/05/21 Atorvastatin [Lipitor] 40 mg DAILY 07/23/16 06/05/21 Apixaban [Eliquis] 2.5 mg PO DAILY 06/05/21 06/05/21 Levothyroxine Sodium [Synthroid] 50 mcg PO DAILY 06/05/21 06/05/21 - Allergies Allergies/Adverse Reactions: Allergies Allergy/AdvReac Type Severity Reaction Status Date / Time carvedilol AdvReac Unknown Verified 06/05/21 10:11 - Social History Does the pt smoke?: No Smoking Status: Never smoker Does the pt drink ETOH?: Yes Does the pt have substance abuse?: No - Immunizations Immunizations are current?: Yes - POLST Patient has POLST: No PD ED PE NORMAL - Vitals Vital signs reviewed: Yes - General General: Alert and oriented X 3, No acute distress, Well developed/nourished - HEENT HEENT: Moist mucous membranes - Neck Neck: Supple, no meningeal sign, No adenopathy - Cardiac Cardiac: RRR, No murmur, No rub - Respiratory Respiratory: Clear bilaterally, Other (sternal old scar c/w sternotomy. No drainage, swelling, deformity. Mild tenderness mid sternal area and just left of center. ) - Abdomen Abdomen: Soft, Non tender - Derm Derm: Normal color, Warm and dry - Extremities Extremities: No tenderness to palpate, Normal ROM s pain, No edema, No calf tenderness / cord Results - Vitals Vitals: Vital Signs - 24 hr 06/05/21 06/05/21 06/05/21 10:07 11:00 11:37 Temperature 36.4 C L 36.7 C Heart Rate 80 55 L 50 L Respiratory 20 18 16 Rate Blood Pressure 175/81 H 152/77 H 139/71 H O2 Saturation 98 98 97 Oxygen O2 Source Room air - EKG (time done) 10:04 Rate: Rate (enter#) (70) Rhythm: NSR Intervals: RBBB QRS: Normal Ischemia: Normal ST segments, Non specific changes. No: ST elevation c/w ischemia, ST depression Compare to prior EKG: Unchanged from prior EKG (10/12/2018) - Labs Labs: Laboratory Tests 06/05/21 06/05/21 06/05/21 10:20 10:20 10:20 WBC 6.3 RBC 4.54 L Hgb 13.8 L Hct 43.1 MCV 94.9 H MCH 30.4 MCHC 32.0 RDW 13.7 Plt Count 174 MPV 9.4 Neut # (Auto) Not Reportable Lymph # (Auto) Not Reportable [place] # (Auto) Not Reportable Eos # (Auto) Not Reportable Baso # (Auto) Not Reportable Absolute Nucleated RBC Not Reportable Total Counted 100 Band Neuts % (Manual) 0 Abnorm Lymph % (Manual) 0 Nucleated RBC % Not Reportable Neutrophils # (Manual) 3.9 Lymphocytes # (Manual) 1.4 L Monocytes # (Manual) 0.4 Eosinophils # (Manual) 0.5 Basophils # (Manual) 0.0 Differential Comment MANUAL DIFFERENTIAL Platelet Estimate NORMAL (130-450,000) Platelet Morphology NORMAL APPEARANCE RBC Morph Micro Appear NORMAL APPEARANCE Sodium 139 Potassium 4.0 Chloride 108 Carbon Dioxide 23 Anion Gap 8.0 BUN 29 H Creatinine 1.7 H Estimated GFR (MDRD) 39 L Glucose 105 H Calcium 8.7 Total Bilirubin 1.0 AST 20 ALT 17 Alkaline Phosphatase 98 Troponin I High Sens 12.4 B-Natriuretic Peptide Total Protein 7.0 Albumin 3.7 Globulin 3.3 Albumin/Globulin Ratio 1.1 Lipase 43 06/05/21 10:20 WBC RBC Hgb Hct MCV MCH MCHC RDW Plt Count MPV Neut # (Auto) Lymph # (Auto) [place] # (Auto) Eos # (Auto) Baso # (Auto) Absolute Nucleated RBC Total Counted Band Neuts % (Manual) Abnorm Lymph % (Manual) Nucleated RBC % Neutrophils # (Manual) Lymphocytes # (Manual) Monocytes # (Manual) Eosinophils # (Manual) Basophils # (Manual) Differential Comment Platelet Estimate Platelet Morphology RBC Morph Micro Appear Sodium Potassium Chloride Carbon Dioxide Anion Gap BUN Creatinine Estimated GFR (MDRD) Glucose Calcium Total Bilirubin AST ALT Alkaline Phosphatase Troponin I High Sens B-Natriuretic Peptide 134 H Total Protein Albumin Globulin Albumin/Globulin Ratio Lipase - Rads (name of study) chest xray Radiology: Prelim report reviewed (no acute process. Prior sternotomy wires in place. ), See rad report PD MEDICAL DECISION MAKING - ED course Complexity details: reviewed results, considered differential, d/w patient Departure - Departure Disposition: 01 Home, Self Care Clinical Impression: Chest pain, mid sternal Condition: Stable Record reviewed to determine appropriate education?: Yes Instructions: ED Chest Pain Costochondritis Follow-Up: Fran Wallace MD [Primary Care Provider] - Comments: No signs of heart injury/heart attack nor heart failure. Your chest x-ray is clear without any signs of fluid or injury to the lung. I would presume there is some inflammation through the cartilage in the chest wall and/or the sternum. The pressure on the breastbone may have created some inflammation where the wires are under the skin and in the cartilage. I would anticipate this improving with a bit more time. For symptoms he can use Tylenol 1 to 2 tablets 4 times a day for the next several days to week regularly. Continue your other usual medicines. Recheck if not better over the next week and return if any development of other associated symptoms such as lightheadedness, shortness of breath, fevers, cough, rash, other concerns. Discharge Date/Time: 06/05/21 11:42
[2021-06-05 10:33] LABS: BASOPHILS % (AUTO) 0.8 %; HCT - HEMATOCRIT 43.1 % (42.0-52.0); HGB - HEMOGLOBIN 13.8 g/dL (14.0-18.0); LYMPHOCYTES % (AUTO) 22.5 %; MEAN CORPUSCULAR HEMOGLOBIN 30.4 pg (27.0-31.0); MEAN CORPUSCULAR VOLUME 94.9 fL (80.0-94.0); MEAN PLATELET VOLUME 9.4 fL (7.4-11.4); MONOCYTES % (AUTO) 11.1 %; NEUTROPHILS % (AUTO) 62.1 %; PLT - PLATELET COUNT 174 10^3/uL (130-450); RED BLOOD COUNT 4.54 10^6/uL (4.70-6.10); RED CELL DISTRIBUTION WIDTH 13.7 % (12.0-15.0); WHITE BLOOD COUNT 6.3 x10^3/uL (4.8-10.8)
[2021-06-05 10:36] LABS: ABNORMAL LYMPHS % (MANUAL) 0 %; BAND NEUTROPHILS % (MANUAL) 0 %
[2021-06-05 10:45] LABS: ALBUMIN 3.7 g/dL (3.2-5.5); ALBUMIN/GLOBULIN RATIO 1.1 (1.0-2.2); CALCIUM 8.7 mg/dL (8.5-10.3); CREATININE 1.7 mg/dL (0.6-1.2)
--- NOTE | 2021-06-05 10:45 | XRAY Report ---
PROCEDURE: Chest 1 View X-Ray INDICATIONS: Chest Pain TECHNIQUE: One view of the chest was acquired. COMPARISON: None available. FINDINGS: Surgical changes and devices: Postoperative changes of CABG. Lungs and pleura: No pleural effusions or pneumothorax. Lungs are clear. Mediastinum: Mediastinal contours appear normal. Heart size is normal. Bones and chest wall: No suspicious bony lesions. Overlying soft tissues appear unremarkable. IMPRESSION: No acute cardiopulmonary abnormality. Reviewed by: Juan Ramon Foley on 06/05/2021 9:44 AM [place] Approved by: Juan Ramon Foley on 06/05/2021 9:44 AM [place] Station ID: [id number]
[2021-06-05 10:59] LABS: DIFFERENTIAL COMMENT MANUAL DIFFERENTIAL; EOSINOPHILS # (MANUAL) 0.5 10^3/uL (0-0.7); LYMPHOCYTES # (MANUAL) 1.4 10^3/uL (1.5-3.5); LYMPHOCYTES % (MANUAL) 23 %; MONOCYTES # (MANUAL) 0.4 10^3/uL (0.0-1.0); NEUTROPHILS # (MANUAL) 3.9 10^3/uL (1.5-6.6); PLATELET ESTIMATE, MANUAL NORMAL (130-450,000) (NORMAL); PLATELET MORPHOLOGY NORMAL APPEARANCE (NORMAL); RBC MORPHOLOGY (MULTIPLE) NORMAL APPEARANCE (NORMAL)
[2021-06-05 11:38] VITALS: BP 139/71
== END 2021-06-05 11:42 | disposition home or self-care (01) ==
LOC: ED 10:00
DX: R07.89 Other chest pain (principal); I10 Essential (primary) hypertension; I48.91 Unspecified atrial fibrillation; Z79.01 Long term (current) use of anticoagulants; Z95.5 Presence of coronary angioplasty implant and graft
CPT/HCPCS: 36415; 80053; 83690; 83880; 84484; 85025; 93005; 99284

== ENCOUNTER 2022-03-28 08:09 | Outpatient (CLI) | payer MEDICARE, OTHER ==
[2022-03-28 11:46] LABS: BASOPHILS # (AUTO) 0.1 10^3/uL (0.0-0.1); BASOPHILS % (AUTO) 0.9 %; EOSINOPHILS # (AUTO) 0.2 10^3/uL (0.0-0.7); HCT - HEMATOCRIT 47.9 % (42.0-52.0); HGB - HEMOGLOBIN 15.2 g/dL (14.0-18.0); LYMPHOCYTES # (AUTO) 1.9 10^3/uL (1.5-3.5); LYMPHOCYTES % (AUTO) 24.7 %; MEAN CORPUSCULAR HEMOGLOBIN 30.8 pg (27.0-31.0); MEAN CORPUSCULAR HGB CONC 31.7 g/dL (32.0-36.0); MEAN CORPUSCULAR VOLUME 97.2 fL (80.0-94.0); MEAN PLATELET VOLUME 10.4 fL (7.4-11.4); MONOCYTES # (AUTO) 0.8 10^3/uL (0.0-1.0); MONOCYTES % (AUTO) 10.2 %; NEUTROPHILS # (AUTO) 4.7 10^3/uL (1.5-6.6); NEUTROPHILS % (AUTO) 60.8 %; PLT - PLATELET COUNT 206 10^3/uL (130-450); RED BLOOD COUNT 4.93 10^6/uL (4.70-6.10); WHITE BLOOD COUNT 7.7 x10^3/uL (4.8-10.8)
[2022-03-28 12:39] LABS: ALBUMIN 3.8 g/dL (3.2-5.5); ALBUMIN/GLOBULIN RATIO 1.1 (1.0-2.2); ALKALINE PHOSPHATASE 80 IU/L (42-121); ALT ALANINE AMINOTRANSFERASE 22 IU/L (10-60); AST ASPARTATE AMINOTRANSFERASE 20 IU/L (10-42); BILIRUBIN,TOTAL 0.9 mg/dL (0.2-1.0); BUN - BLOOD UREA NITROGEN 35 mg/dL (6-20); CALCIUM 8.8 mg/dL (8.5-10.3); CARBON DIOXIDE - CO2 27 mmol/L (21-32); CHLORIDE 104 mmol/L (101-111); CHOL/HDL RATIO 2.4 (<5.0); CHOLESTEROL 103 mg/dL; GFR - MDRD 32 (>89); GLUCOSE 110 mg/dL (70-100); HDL CHOLESTEROL 43 mg/dL; LDL CHOLESTEROL,CALCULATED 48 mg/dL; LDL/HDL RATIO 1.1 (<3.6); POTASSIUM 4.7 mmol/L (3.5-5.0); SODIUM 138 mmol/L (135-145); TOTAL PROTEIN 7.4 g/dL (6.7-8.2); TRIGLYCERIDES 59 mg/dL; VLDL CHOLESTEROL 12 mg/dL
[2022-03-28 12:44] LABS: THYROID STIMULATING HORMONE 5.27 uIU/mL (0.34-5.60)
== END 2022-03-28 08:10 | disposition home or self-care (01) ==
LOC: LAB.N 08:09
PROVIDERS: ATTEND Internal Medicine
DX: I25.10 Atherosclerotic heart disease of native coronary artery without angina pectoris (principal); I48.0 Paroxysmal atrial fibrillation
CPT/HCPCS: 36415; 80053; 80061; 83721; 84443; 85025

== ENCOUNTER 2022-05-05 08:17 | Outpatient (CLI) | payer MEDICARE, OTHER ==
[2022-05-05 12:33] LABS: ALBUMIN 3.7 g/dL (3.2-5.5); ALBUMIN/GLOBULIN RATIO 1.2 (1.0-2.2); BILIRUBIN,TOTAL 0.8 mg/dL (0.2-1.0); CALCIUM 8.7 mg/dL (8.5-10.3); CREATININE 1.7 mg/dL (0.6-1.2); POTASSIUM 4.4 mmol/L (3.5-5.0); TOTAL PROTEIN 6.7 g/dL (6.7-8.2)
[2022-05-05 12:48] LABS: THYROID STIMULATING HORMONE 5.94 uIU/mL (0.34-5.60)
[2022-05-05 12:49] LABS: FREE T3 2.65 pg/mL (2.5-3.9)
[2022-05-05 12:50] LABS: FREE T4 (FREE THYROXINE) 1.13 ng/dL (0.58-1.64)
== END 2022-05-05 08:18 | disposition home or self-care (01) ==
LOC: LAB.N 08:17
PROVIDERS: ATTEND Nurse Practitioner
DX: I48.19 Other persistent atrial fibrillation (principal); Z79.899 Other long term (current) drug therapy; I34.0 Nonrheumatic mitral (valve) insufficiency
CPT/HCPCS: 36415; 80053; 84439; 84443; 84481

== ENCOUNTER 2022-11-30 11:51 | Outpatient (CLI) | payer MEDICARE, OTHER ==
--- NOTE | 2022-11-30 17:26 | XRAY Report ---
PROCEDURE: Chest 2 View X-Ray INDICATIONS: COUGH TECHNIQUE: 2 views of the chest were acquired. COMPARISON: None. FINDINGS: Surgical changes and devices: Midline sternal wires and mediastinal vascular clips present. Lungs and pleura: Trace left lower lobe atelectasis and or infiltrate Mediastinum: Mediastinal contours are normal. Heart size is normal. Bones and chest wall: No suspicious bony abnormalities. Soft tissues appear unremarkable. IMPRESSION: Trace left lower lobe atelectasis and or infiltrate Reviewed by: Ino Garcia MD on 11/30/2022 4:25 PM [place] Approved by: Ino Garcia MD on 11/30/2022 4:25 PM [facility] Station ID: [id number]
== END 2022-11-30 11:52 | disposition home or self-care (01) ==
LOC: DI 11:51
PROVIDERS: ATTEND Physician Assistant Medical
DX: R91.8 Other nonspecific abnormal finding of lung field (principal)

== ENCOUNTER 2023-02-26 13:31 | Emergency (ER) | payer MEDICARE, OTHER ==
[2023-02-26 14:13] LABS: BASOPHILS # (AUTO) 0.1 10^3/uL (0.0-0.1); BASOPHILS % (AUTO) 0.9 %; EOSINOPHILS # (AUTO) 0.2 10^3/uL (0.0-0.7); EOSINOPHILS % (AUTO) 3.8 %; HCT - HEMATOCRIT 45.4 % (42.0-52.0); HGB - HEMOGLOBIN 14.3 g/dL (14.0-18.0); LYMPHOCYTES # (AUTO) 1.2 10^3/uL (1.5-3.5); LYMPHOCYTES % (AUTO) 20.8 %; MEAN CORPUSCULAR HEMOGLOBIN 30.5 pg (27.0-31.0); MEAN CORPUSCULAR HGB CONC 31.5 g/dL (32.0-36.0); MEAN CORPUSCULAR VOLUME 96.8 fL (80.0-94.0); MEAN PLATELET VOLUME 9.3 fL (7.4-11.4); MONOCYTES # (AUTO) 0.8 10^3/uL (0.0-1.0); MONOCYTES % (AUTO) 13.1 %; NEUTROPHILS # (AUTO) 3.5 10^3/uL (1.5-6.6); NEUTROPHILS % (AUTO) 61.1 %; PLT - PLATELET COUNT 188 10^3/uL (130-450); RED BLOOD COUNT 4.69 10^6/uL (4.70-6.10); RED CELL DISTRIBUTION WIDTH 13.8 % (12.0-15.0); WHITE BLOOD COUNT 5.7 x10^3/uL (4.8-10.8)
[2023-02-26 14:22] LABS: CALCIUM 8.6 mg/dL (8.5-10.3); CREATININE 1.6 mg/dL (0.6-1.2); MAGNESIUM 2.3 mg/dL (1.7-2.8); POTASSIUM 4.4 mmol/L (3.5-5.0)
[2023-02-26] MEDS ORDERED: PROPOFOL 200 MG/20 ML VIAL IVP STA (15:46)
--- NOTE | 2023-02-26 15:51 | ED Physician Documentation ---
History of Present Illness - Stated complaint Stated Complaint: AB HEART RATE - Chief complaint Chief Complaint: Cardiac - History obtained from History obtained from: Patient, Family - History of Present Illness Timing: Today Pain level max: 0 Pain level now: 0 - Additonal information Additional information: Patient is an 87-year-old male who presents to the emergency department stating that he felt himself going to atrial fibrillation today. History of paroxysmal atrial fibrillation. No shortness of breath. No chest pain. Nothing makes it better or worse. He states that he would like to be electrically cardioverted back to sinus rhythm. He sees [employer] network engineer later this week. He is on amiodarone at home. He is unsure of what other medications he is on. Review of Systems Constitutional: denies: Fever, Chills Cardiac: denies: Chest pain / pressure Respiratory: denies: Dyspnea, Cough GI: denies: Abdominal Pain, Nausea, Vomiting, Diarrhea Skin: denies: Rash Musculoskeletal: denies: Neck pain, Back pain Neurologic: denies: Headache PD PAST MEDICAL HISTORY - Past Medical History Cardiovascular: Congestive heart failure, Hypertension, Atrial flutter, Atrial fibrillation Respiratory: Other Endocrine/Autoimmune: None GI: None : Incontinence, Nocturia HEENT: Chronic vision loss Psych: None Musculoskeletal: None Derm: None - Past Surgical History Past Surgical History: Yes Cardiovascular: CABG, Coronary stent HEENT: Cataracts - Present Medications Home Medications: Ambulatory Orders Medication Instructions Recorded Confirmed Aspirin 81 mg PO DAILY 08/09/13 03/16/22 Nitroglycerin 0.4 mg SL Q5M PRN 01/05/16 03/16/22 Amiodarone [Pacerone] 100 mg DAILY 07/23/16 03/16/22 Atorvastatin [Lipitor] 40 mg DAILY 07/23/16 03/16/22 Apixaban [Eliquis] 2.5 mg PO BID 06/05/21 03/16/22 Levothyroxine Sodium [Synthroid] 50 mcg PO DAILY 06/05/21 03/16/22 Metoprolol Succinate [Toprol Xl] 50 mg PO DAILY #30 tablet 03/16/22 - Allergies Allergies/Adverse Reactions: Allergies Allergy/AdvReac Type Severity Reaction Status Date / Time carvedilol AdvReac Unknown Verified 03/16/22 12:25 - Social History Does the pt smoke?: No Smoking Status: Never smoker Does the pt drink ETOH?: Yes Does the pt have substance abuse?: No - Immunizations Immunizations are current?: Yes - POLST Patient has POLST: No PD ED PE NORMAL - Vitals Vital signs reviewed: Yes - General General: Alert and oriented X 3, No acute distress - HEENT HEENT: PERRL, Moist mucous membranes, Pharynx benign - Neck Neck: Supple, no meningeal sign - Cardiac Cardiac: Other (Irregularly irregular) - Respiratory Respiratory: No respiratory distress, Clear bilaterally - Abdomen Abdomen: Soft, Non tender, Non distended - Derm Derm: Warm and dry - Extremities Extremities: No edema - Neuro Neuro: Alert and oriented X 3 - Psych Psych: Normal mood, Normal affect Results - Vitals Vitals: Vital Signs - 24 hr 02/26/23 02/26/23 02/26/23 13:40 16:00 16:07 Temperature 37 C Heart Rate 80 70 86 Respiratory 16 16 28 H Rate Blood Pressure 129/75 135/81 H O2 Saturation 97 100 If not protocol : Oxygen Flow, liters/minute 02/26/23 02/26/23 02/26/23 16:21 16:22 16:45 Temperature Heart Rate 56 L 56 L 53 L Respiratory 17 23 20 Rate Blood Pressure 106/61 100/66 113/68 O2 Saturation 100 100 99 If not protocol 2 : Oxygen Flow, liters/minute 02/26/23 16:53 Temperature Heart Rate 52 L Respiratory 21 Rate Blood Pressure 122/63 O2 Saturation 100 If not protocol : Oxygen Flow, liters/minute Oxygen O2 Source Room air - EKG (time done) 1350 EKG releavant findings:: EKG personally interpreted by author of this note. Relevant findings are: Rate: Rate (enter#) (94) Rhythm: Atrial fibrillation [place]: LAD QRS: Normal Ischemia: Non specific changes 1614 EKG releavant findings:: EKG personally interpreted by author of this note. Relevant findings are: Rate: Rate (enter#) (52) Rhythm: NSR [place]: Normal Intervals: Normal MD QRS: Normal Ischemia: T wave inversion (V1-2) - Labs Labs: Laboratory Tests 02/26/23 02/26/23 14:09 14:09 WBC 5.7 RBC 4.69 L Hgb 14.3 Hct 45.4 MCV 96.8 H MCH 30.5 MCHC 31.5 L RDW 13.8 Plt Count 188 MPV 9.3 Neut # (Auto) 3.5 Lymph # (Auto) 1.2 L [place] # (Auto) 0.8 Eos # (Auto) 0.2 Baso # (Auto) 0.1 Absolute Nucleated RBC 0.00 Nucleated RBC % 0.0 Sodium 140 Potassium 4.4 Chloride 110 Carbon Dioxide 24 Anion Gap 6.0 BUN 30 H Creatinine 1.6 H Estimated GFR (MDRD) 41 L Glucose 127 H Calcium 8.6 Magnesium 2.3 Procedures - Procedural sedation Sedation prep: Informed consent Sedation Medications: propofol Mallampati classification: II Patient status during sedation: Unresponsive, Respiratory depression Sedation recovery: Recovered uneventfully, Back to baseline Time in sedation (Minutes): 15 - Cardioversion - Major 1 Time of attempt: 16:00 Indication: Tachyarrhythmia Risks, benefits, alternatives explained to: Pt Prep: IV, O2, rv repair technician, Pulse ox, Airway equip CS via: Pads, AP approach Sync: Biphasic, 100j Post cardioversion rhythm: NSR Complications: Other (respiratory depression) Performed by: ED MD PD Medical Decision Making - ED course Complexity details: reviewed old records, reviewed results, re-evaluated patient, considered differential, d/w patient ED course: Patient with atrial fibrillation with rapid ventricular response. He declines any attempted medical management, request electrical cardioversion. This is performed. Tolerated well. No complications. Patient back into sinus rhythm. Patient will follow-up with his [employer] network engineer as scheduled. Patient counseled regarding signs and symptoms for which I believe and urgent re-evaluation would be necessary. Patient with good understanding of and agreement to plan and is comfortable going home at this time This document was made in part using voice recognition software. While efforts are made to proofread this document, sound alike and grammatical errors may occur. Departure - Departure Disposition: 01 Home, Self Care Clinical Impression: Paroxysmal atrial fibrillation with RVR Condition: Good Instructions: ED Afib Follow-Up: Ezra Hull MD [Physician No Access] - Within 1 week Comments: You were electrically cardioverted back into sinus rhythm today. Please follow- up with your [employer] network engineer for further care. Please continue your current medications. Return if you worsen. Discharge Date/Time: 02/26/23 17:09
[2023-02-26 16:55] VITALS: BP 122/63
== END 2023-02-26 17:09 | disposition home or self-care (01) ==
LOC: ED 13:31
DX: I48.0 Paroxysmal atrial fibrillation (principal); Z95.1 Presence of aortocoronary bypass graft
CPT/HCPCS: 36415; 80048; 83735; 85025; 92960; 93005; 94770; 99152; 99284

== ENCOUNTER 2023-05-16 09:58 | Outpatient (CLI) | payer MEDICARE, OTHER ==
[2023-05-16 11:45] LABS: BASOPHILS # (AUTO) 0.1 10^3/uL (0.0-0.1); BASOPHILS % (AUTO) 0.8 %; EOSINOPHILS # (AUTO) 0.2 10^3/uL (0.0-0.7); EOSINOPHILS % (AUTO) 3.4 %; HCT - HEMATOCRIT 41.8 % (42.0-52.0); HGB - HEMOGLOBIN 13.3 g/dL (14.0-18.0); LYMPHOCYTES # (AUTO) 1.8 10^3/uL (1.5-3.5); LYMPHOCYTES % (AUTO) 27.6 %; MEAN CORPUSCULAR HEMOGLOBIN 31.1 pg (27.0-31.0); MEAN CORPUSCULAR HGB CONC 31.8 g/dL (32.0-36.0); MEAN CORPUSCULAR VOLUME 97.9 fL (80.0-94.0); MONOCYTES # (AUTO) 0.7 10^3/uL (0.0-1.0); MONOCYTES % (AUTO) 10.5 %; NEUTROPHILS # (AUTO) 3.7 10^3/uL (1.5-6.6); NEUTROPHILS % (AUTO) 57.2 %; PLT - PLATELET COUNT 174 10^3/uL (130-450); RED BLOOD COUNT 4.27 10^6/uL (4.70-6.10); RED CELL DISTRIBUTION WIDTH 13.8 % (12.0-15.0); WHITE BLOOD COUNT 6.5 x10^3/uL (4.8-10.8)
[2023-05-16 12:47] LABS: ALBUMIN 3.9 g/dL (3.2-5.5); ALBUMIN/GLOBULIN RATIO 1.4 (1.0-2.2); ALKALINE PHOSPHATASE 75 IU/L (42-121); ALT ALANINE AMINOTRANSFERASE 17 IU/L (10-60); AST ASPARTATE AMINOTRANSFERASE 22 IU/L (10-42); BILIRUBIN,TOTAL 0.8 mg/dL (0.2-1.0); BUN - BLOOD UREA NITROGEN 31 mg/dL (6-20); CALCIUM 8.7 mg/dL (8.5-10.3); CARBON DIOXIDE - CO2 25 mmol/L (21-32); CHLORIDE 110 mmol/L (101-111); CHOL/HDL RATIO 2.2 (<5.0); CHOLESTEROL 102 mg/dL; CREATININE 1.8 mg/dL (0.6-1.3); GFR - MDRD 36 (>89); GLUCOSE 98 mg/dL (74-104); HDL CHOLESTEROL 47 mg/dL; LDL CHOLESTEROL,CALCULATED 42 mg/dL; LDL/HDL RATIO 0.9 (<3.6); POTASSIUM 4.7 mmol/L (3.5-4.5); SODIUM 138 mmol/L (135-145); TOTAL PROTEIN 6.6 g/dL (6.4-8.9); TRIGLYCERIDES 63 mg/dL (48-352); VLDL CHOLESTEROL 13 mg/dL
[2023-05-16 12:59] LABS: THYROID STIMULATING HORMONE 4.18 uIU/mL (0.34-5.60)
== END 2023-05-16 09:59 | disposition home or self-care (01) ==
LOC: LAB.N 09:58
PROVIDERS: ATTEND Internal Medicine
DX: I25.10 Atherosclerotic heart disease of native coronary artery without angina pectoris (principal); R94.6 Abnormal results of thyroid function studies
CPT/HCPCS: 36415; 80053; 80061; 83721; 84439; 84443; 85025

== ENCOUNTER 2023-06-15 09:31 | Emergency (ER) | payer MEDICARE, OTHER ==
[2023-06-15 09:42] VITALS: BP 147/46; O2SAT 97
--- NOTE | 2023-06-15 10:02 | ED Physician Documentation ---
History of Present Illness - Stated complaint Stated Complaint: RT RIB PX - Chief complaint Chief Complaint: General - History obtained from History obtained from: Patient - Additonal information Additional information: The patient comes to the emergency department chief complaint of right rib pain for left the last 5 or 6 days after stooping to pick something up and feeling a pop. He states that he has had a mild amount of pain with deep breaths but with certain reaching or other positional changes, the pain seems to get worse. He denies any cough or shortness of breath. He was not injured in any other way. He has some ongoing left shoulder pain that is unrelated to this injury. No other complaints at this time. PD PAST MEDICAL HISTORY - Past Medical History Cardiovascular: Congestive heart failure, Hypertension, Atrial flutter, Atrial fibrillation Respiratory: Other Endocrine/Autoimmune: None GI: None : Incontinence, Nocturia HEENT: Chronic vision loss Psych: None Musculoskeletal: None Derm: None - Past Surgical History Past Surgical History: Yes Cardiovascular: CABG, Coronary stent HEENT: Cataracts - Present Medications Home Medications: Ambulatory Orders Medication Instructions Recorded Confirmed Aspirin 81 mg PO DAILY 08/09/13 06/15/23 Nitroglycerin 0.4 mg SL Q5M PRN 01/05/16 06/15/23 Amiodarone [Pacerone] 100 mg DAILY 07/23/16 06/15/23 Atorvastatin [Lipitor] 40 mg DAILY 07/23/16 06/15/23 Apixaban [Eliquis] 2.5 mg PO BID 06/05/21 06/15/23 Levothyroxine Sodium [Synthroid] 50 mcg PO DAILY 06/05/21 06/15/23 Losartan Potassium 25 mg PO DAILY 06/15/23 06/15/23 - Allergies Allergies/Adverse Reactions: Allergies Allergy/AdvReac Type Severity Reaction Status Date / Time carvedilol AdvReac Unknown Verified 06/15/23 10:27 - Social History Does the pt smoke?: No Smoking Status: Never smoker Does the pt drink ETOH?: Yes Does the pt have substance abuse?: No - Immunizations Immunizations are current?: Yes - POLST Patient has POLST: No PD ED PE NORMAL - Vitals Vital signs reviewed: Yes - General General: Alert and oriented X 3, No acute distress, Well developed/nourished - HEENT HEENT: Atraumatic, PERRL, EOMI, Moist mucous membranes - Neck Neck: Supple, no meningeal sign - Cardiac Cardiac: RRR, No murmur, Strong equal pulses - Respiratory Respiratory: No respiratory distress, Clear bilaterally - Abdomen Abdomen: Soft, Non tender, Non distended - Derm Derm: Normal color, Warm and dry, No rash - Extremities Extremities: No deformity, No edema - Neuro Neuro: Alert and oriented X 3 - Psych Psych: Normal mood, Normal affect - Free text exam Free text exam: Tenderness to palpation over anterior right rib cage in the midclavicular line around the ribs 6 through 8 area. Recreates the pain. Results - Vitals Vitals: Vital Signs - 24 hr 06/15/23 09:36 Temperature 36.1 C L Heart Rate 74 Respiratory 20 Rate Blood Pressure 147/46 H O2 Saturation 97 Oxygen O2 Source Room air - Rads (name of study) X-ray ribs and chest Relevant Findings:: Final report received, See rad report (Negative) PD Medical Decision Making - ED course Complexity details: reviewed results, re-evaluated patient, considered differential, d/w patient ED course: The patient was worked up with x-ray series of the right ribs and chest, which was unremarkable. We have discussed symptomatic management at home as well as the usual indications for return. Departure - Departure Disposition: 01 Home, Self Care Clinical Impression: Strain of chest wall Qualifiers: Encounter type: initial encounter Qualified Code(s): S29.011A - Strain of muscle and tendon of front wall of thorax, initial encounter Condition: Stable Instructions: ED Chest Pain Costochondritis, ED Strain Chest Wall Ch Comments: You have strained your chest wall and created some inflammation, which is responsible for the pain. This will go away on its own but it can sometimes take a few weeks. You may take ibuprofen and Tylenol if needed. You may apply ice and hot packs to the area to help soothe some of the discomfort. There is no evidence of broken ribs, pneumonia, or any other concerning findings. There is no obvious abnormality of your left shoulder on the films that we have gotten, but If you have been having ongoing pain in the left shoulder, you should talk to your doctor about getting an MRI to further evaluate some of the soft tissue structures. Forms: PCP List Discharge Date/Time: 06/15/23 10:44
--- NOTE | 2023-06-15 10:21 | XRAY Report ---
PROCEDURE: Ribs w/PA Chest RT INDICATIONS: pain/injury TECHNIQUE: 3 views of the right ribs were acquired, along with a single view chest. COMPARISON: Chest x-ray 11/30/2022 FINDINGS: Surgical changes and devices: Sternal wires. Bones and chest wall: No fractures or dislocations. No suspicious bony lesions. Overlying soft tis sues appear unremarkable. Lungs and pleura: No pleural effusions or pneumothorax. Lungs appear clear. Mediastinum: Mediastinal contours appear normal. Heart size is normal. IMPRESSION: No visualized acute fracture or dislocation. However, occult injury cannot be excluded. Recommend veena rt interval imaging follow-up in 7-10 days as clinically indicated for additional evaluation. Reviewed by: Keysha Simon MD on 06/15/2023 10:20 AM PDT Approved by: Keysha Simon MD on 06/15/2023 10:20 AM PDT Station ID: [id number]
== END 2023-06-15 10:44 | disposition home or self-care (01) ==
LOC: ED 09:31
DX: S29.011A Strain of muscle and tendon of front wall of thorax, initial encounter (principal); X58.XXXA Exposure to other specified factors, initial encounter; I10 Essential (primary) hypertension; I48.91 Unspecified atrial fibrillation; Z95.1 Presence of aortocoronary bypass graft
CPT/HCPCS: 99283

== ENCOUNTER 2023-09-21 07:08 | Outpatient (CLI) | payer MEDICARE, OTHER ==
[2023-09-21 12:37] LABS: ALBUMIN 3.9 g/dL (3.2-5.5); ALBUMIN/GLOBULIN RATIO 1.4 (1.0-2.2); BILIRUBIN,TOTAL 0.9 mg/dL (0.2-1.0); CALCIUM 9.3 mg/dL (8.5-10.3); CREATININE 1.7 mg/dL (0.6-1.3); POTASSIUM 4.3 mmol/L (3.5-4.5); TOTAL PROTEIN 6.6 g/dL (6.4-8.9)
[2023-09-21 12:45] LABS: THYROID STIMULATING HORMONE 3.87 uIU/mL (0.34-5.60)
== END 2023-09-21 07:09 | disposition home or self-care (01) ==
LOC: LAB.N 07:08
PROVIDERS: ATTEND Nurse Practitioner
DX: I48.91 Unspecified atrial fibrillation (principal); Z79.899 Other long term (current) drug therapy; E78.5 Hyperlipidemia, unspecified
CPT/HCPCS: 36415; 80053; 83721; 84439; 84443